=== PATIENT | male | born 1955 | race Caucasian/White ===

== ENCOUNTER → 2018-05-25 | Outpatient (CLI) | payer SELFPAY ==
--- NOTE | 2018-06-06 11:20 | PCVCIMAG ---
APPROVED REPORT Study performed: 05/25/2018 16:18:05 Exam: Stress Echocardiogram Indication: Chest pain, Elevated Cor Ca+ score,Fatigue, Patient Location: Echo lab Stress Nurse: Brigitte Haider RN Room #: 2 Status: routine Ht: 6 ft 1 in HR: 79 bpm BP: 122/84 mmHg Rhythm: NSR Medical History Medical History: CAD non obstructive, HTN Cardiac Risk Factors: FHX of CAD, Tobacco History (Former), Hyperlipidemia Previous Cardiac Procedures: none Exercise History: Physically active Procedure The patient underwent an Exercise Stress Test using the Walter Protocol. Blood pressure, heart rate, and EKG were monitored. An Echocardiogram was performed by computer field technician in four stages in quad fashion. At peak stress, four selected images were obtained and placed side by side with resting images for comparison. Stress Test Details Stress Test: Exercise stress testing was performed using a Walter protocol. HR Resting HR: 79 bpmMax Heart Rate (APMHR): 159 bpm Max HR Achieved: 144 bpmTarget HR (85% APMHR): 135 bpm % of APMHR: 90 Recovery HR: 96 bpm HR response to stress: Normal HR response to stress BP Resting BP: 122/84 mmHg Max BP: 172/80 mmHg Recovery BP: 134/78 mmHg BP response to stress: Normal blood pressure response to stress. ECG Resting ECG: Sinus Rhythm Stress ECG: Sinus Rhythm ST Change: Non-ischemic Arrhythmia: Occasional PVCs,short runs bigeminy Recovery ECG: Sinus Rhythm Recovery ST Change: Non-ischemic Recovery Arrhythmia: Rare PVC Clinical Reason for Termination: Maximal effort Stress Symptoms: fatigue Exercise duration: 9 min 31 sec Highest Stage Achieved: Stage 4: 4.2 mph at 16% grade. Exercise capacity: 11.8 METs Overall Exercise Capacity for Age: Normal Scale: Active Angina Score: None No complications. Stress ECG Conclusion The patient exercised according to the WALTER protocol for 9:31 mins; achieving a work level of 11.8 METS. The resting heart rate of 79 bpm henrique to a maximum heart rate of 144 bpm. This value represent 90% of the maximal, age-predicted heart rate. The resting blood pressure of 122/84 mmHg, henrique to a maximum blood pressure of 172/82 mmHg. The exercise test was stopped due to fatigue. Pre-Stress Echo The resting Echocardiogram showed normal left ventricular contractility with an estimated Ejection Fraction of about 55-60%. Normal wall motion in all segments on baseline images. Post-Stress Echo The stress Echocardiogram showed normal left ventricular contractility with an estimated Ejection Fraction of about 65-70%. Normal augmentation of wall motion in all segments on post stress images. Clinical No clinical or ECG evidence for ischemia. Conclusion Clinical Response: Non-ischemic Exercise Capacity: Average Stress ECG Response: Non-ischemic Stress Echo Images: Non-ischemic No clinical, EKG or echocardiographic evidence for ischemia. No echocardiographic evidence for exercise induced ischemia. Normal stress echocardiogram with maximal exercise stress. <Conclusion> No clinical, EKG or echocardiographic evidence for ischemia. No echocardiographic evidence for exercise induced ischemia. Normal stress echocardiogram with maximal exercise stress.
== END | disposition home or self-care (01) ==
LOC: PCVCIMAG 16:19
PROVIDERS: ATTEND Internal Medicine Cardiovascular Disease
DX: R07.9 Chest pain, unspecified (principal); R93.1 Abnormal findings on diagnostic imaging of heart and coronary circulation; R53.83 Other fatigue
CPT/HCPCS: 93325; 93351